=== PATIENT | male | born 1950 | race Caucasian/White ===

== ENCOUNTER 2017-02-12 17:35 | Emergency (ER) | payer OTHER ==
[2017-02-12 17:52] VITALS: BP 186/86
--- NOTE | 2017-02-12 18:40 | EDM.PDOC ---
ED HPI GENERAL MEDICAL PROBLEM - General Chief Complaint: Upper Extremity Injury/Pain Stated Complaint: HURT ARM Time Seen by Provider: 02/12/17 17:55 Source of Information: Reports: Patient History Limitations: Reports: No Limitations - History of Present Illness INITIAL COMMENTS - FREE TEXT/NARRATIVE: 66 yo male presents post injury of right arm. this evening he was pulling the boat cover off and felt immediate pain and arm deformity. generally healthy Right Upper Arm Pain Score (Numeric/FACES): 2 - Related Data Allergies Allergy/AdvReac Type Severity Reaction Status Date / Time No Known Allergies Allergy Verified 02/12/17 17:54 Home Meds: Home Meds atorvaSTATin [Lipitor] 10 mg PO ONETIME 02/12/17 [History] Past Medical History - Past Health History Medical/Surgical History: Denies Medical/Surgical History - Infectious Disease History Infectious Disease History: Reports: Chicken Pox, Measles, Mumps Social & Family History - Tobacco Use Smoking Status *Q: Never Smoker - Caffeine Use Caffeine Use: Reports: Coffee - Recreational Drug Use Recreational Drug Use: No Review of Systems - Review of Systems Review Of Systems: See Below Constitutional: Denies: Fever Ears: Denies: Pain Respiratory: Denies: Shortness of Breath, Wheezing Cardiovascular: Denies: Chest Pain ED EXAM, GENERAL - Physical Exam Exam: See Below Exam Limited By: No Limitations General Appearance: Alert, WD/WN, No Apparent Distress Respiratory/Chest: No Respiratory Distress, Lungs Clear, Normal Breath Sounds. No: Crackles, Rhonchi, Wheezing Cardiovascular: Regular Rate, Rhythm Extremities: Other (right cristina muscle bicep. no tenderness in shoulder) Course - Vital Signs Last Recorded V/S: Last Vital Signs Temp 36.4 C 02/12/17 17:50 Pulse 53 L 02/12/17 17:50 Resp 16 02/12/17 17:50 BP 186/86 H 02/12/17 17:50 Pulse Ox 96 02/12/17 17:50 - Re-Assessments/Exams Free Text/Narrative Re-Assessment/Exam: 02/12/17 18:42 discussed case with ortho [employer] consultant Dr. Ilir Gottlieb. Will place him in Sling and have him follow-up with Dr. Gottlieb Tuesday Morning. pt agrees to this plan. Pain only present when moving arm Departure - Departure Time of Disposition: 18:43 Disposition: Home, Self-Care 01 Condition: Good Clinical Impression: Biceps tendon rupture Qualifiers: Encounter type: initial encounter Laterality: right Qualified Code(s): S46.211A - Strain of muscle, fascia and tendon of other parts of biceps, right arm, initial encounter - Discharge Information Instructions: Tendon Injury Referrals: PCP,None [Primary Care Provider] - Forms: ED Department Discharge Additional Instructions: sling follow-up with Dr. Ilir Gottlieb Tuesday they will call you with appt time ice Tylenol 1000 mg e very 6 hours as needed for pain not to exceed 4000 mg in 24 hours
== END 2017-02-12 18:58 | disposition home or self-care (01) ==
LOC: JP.ED 17:35
DX: S46.211A Strain of muscle, fascia and tendon of other parts of biceps, right arm, initial encounter (principal); X50.9XXA Other and unspecified overexertion or strenuous movements or postures, initial encounter
CPT/HCPCS: 99283